=== PATIENT | male | born 1955 | race Caucasian/White ===

== ENCOUNTER 2017-03-26 23:54 | Observation (INO) | payer BC ==
[~2017-03-26] VITALS: Ht 175.3 cm; Wt 78.3 kg
[2017-03-27] VITALS (13 sets, daily range): BP systolic 105–134; BP diastolic 46–90; PULSE 50–63; TEMP 97–98.3
[2017-03-27 00:33] LABS: BASO % 0.2 % (0.0-2.0); EOS # 0.2 (0.0-0.7); EOS % 1.4 % (0-4.0); GRAN # 9.3 (1.4-6.5); GRAN % 75.2 % (42.2-75.2); HEMATOCRIT 47.3 % (42.0-52.0); HEMOGLOBIN 16.2 g/dl (13.5-18.0); LYMPH # 2.3 (1.2-3.4); LYMPH % 18.1 % (20.0-51.0); MEAN CELL VOLUME 89 fl (80.0-100.0); MEAN CORPUSCULAR HEMOGLOBIN 30 pg (27.0-31.0); MEAN CORPUSCULAR HGB CONC 34 g/dl (33.0-37.0); MEAN PLATELET VOLUME 9.6 fl (7.4-10.4); MONO # 0.6 (0.1-0.6); MONO % 4.7 % (1.7-9.3); PLATELET COUNT 265 K/mm3 (130-400); RED BLOOD COUNT 5.34 M/mm3 (4.20-5.60); WHITE BLOOD COUNT 12.4 K/mm3 (4.8-10.8)
[2017-03-27 00:43] LABS: ADJUSTED CALCIUM 9.5 mg/dL (8.4-10.2); ALANINE AMINOTRANSFERASE 35 U/L (21-72); ALBUMIN 4.5 gm/dL (3.5-5.0); ALKALINE PHOSPHATASE 73 U/L (50-136); ANION GAP 12 mmol/L (7-16); BILIRUBIN,TOTAL 0.8 mg/dL (0.0-1.0); BLOOD UREA NITROGEN 21 mg/dL (9-20); CALCIUM 9.9 mg/dL (8.4-10.2); CARBON DIOXIDE 28 mmol/L (22-30); CHLORIDE 100 mmol/L (98-107); CREATININE, serum 1.07 mg/dL (0.66-1.25); GLUCOSE 142 mg/dL (74-106); LIPASE 88 U/L (23-300); POTASSIUM 4.1 mmol/L (3.4-5.0); SODIUM 140 mmol/L (137-145); TOTAL PROTEIN 7.4 gm/dL (6.4-8.2)
[2017-03-27 00:54] LABS: B-TYPE NATRIURETIC PEPTIDE 64 pg/mL (0-125)
[2017-03-27 00:57] LABS: TROPONIN-I < 0.012 ng/mL (0.000-0.034)
[2017-03-28 03:10] VITALS: BP 132/73; PULSE 58; TEMP 98.6
[2017-03-28 07:54] VITALS: BP 131/61; PULSE 53; TEMP 97.8
[2017-03-28 11:27] VITALS: BP 142/66; PULSE 59; TEMP 98
== END 2017-03-28 13:57 | disposition home or self-care (01) ==
LOC: COL.ER 23:54 → MEDICAL 03-27 06:57
PROVIDERS: Emergency Medicine
DX: K80.12 Calculus of gallbladder with acute and chronic cholecystitis without obstruction (principal); R13.10 Dysphagia, unspecified; K21.9 Gastro-esophageal reflux disease without esophagitis; K42.9 Umbilical hernia without obstruction or gangrene
CPT/HCPCS: G0378; J1100; J1885; J1956; J2405; J2704; J2710; J3010; J7030; J7042; J7120; Q9967

== ENCOUNTER → 2020-05-18 | Outpatient (CLI) | payer OTHER | LOC: COL.RAD 09:39 | DX: K44.9 Diaphragmatic hernia without obstruction or gangrene (principal); K21.9 Gastro-esophageal reflux disease without esophagitis ==